=== PATIENT | male | born 1975 ===

== ENCOUNTER 2019-01-10 03:01 | Inpatient (IN) | payer OTHER ==
--- NOTE | 2019-01-10 03:07 | C.PDOC ---
History Of Present Illness The patient presents to the ED as a psychiatric transfer. Patient was medically evaluated and cleared at [facility], and accepted as a transfer by Dr. Alex for major depression prior to arrival. Patient offers no new complaints at this time. Time Seen by Provider: 01/10/19 03:06 History Per: Patient History/Exam Limitations: no limitations Onset/Duration Of Symptoms: Hrs Current Symptoms Are (Timing): Still Present Additional History Per: Patient Past Medical History Reviewed: Historical Data, Nursing Documentation, Vital Signs - Medical History PMH: No Chronic Diseases Surgical History: No Surg Hx Family History: States: Unknown Family Hx Review Of Systems Constitutional: Negative for: Fever, Chills Cardiovascular: Negative for: Chest Pain Respiratory: Negative for: Shortness of Breath Gastrointestinal: Negative for: Vomiting Skin: Negative for: Rash, Lesions, Jaundice, Bruising Psych: Positive for: Other (psychiatric transfer ) Physical Exam - Physical Exam Appears: Non-toxic, No Acute Distress Skin: Warm, Dry Neck: Supple Extremity: Normal ROM Neurological/Psych: Oriented x3 ED Course And Treatment O2 Sat by Pulse Oximetry: 97 (on RA ) Pulse Ox Interpretation: Normal Disposition Discussed With DrChristin: Addy Alex Comment: accepted the pt on his serviceand took over the care at 3:09AM Counseled Patient/Family Regarding: Studies Performed, Diagnosis - Disposition Disposition: HOSPITALIZED Disposition Time: 03:07 Condition: FAIR - Clinical Impression Clinical Impression: Major depression - Scribe Statement The provider has reviewed the documentation as recorded by the Scribe (Caroline Bishop) Provider Attestation: All medical record entries made by the Scribe were at my direction and personally dictated by me. I have reviewed the chart and agree that the record accurately reflects my personal performance of the history, physical exam, medical decision making, and the department course for this patient. I have also personally directed, reviewed, and agree with the discharge instructions and disposition. Decision To Admit - Pt Status Changed To: Hospital Disposition Of: Inpatient - Admit Certification Admit to Inpatient:: After my assessment, the patient will require hospitalization for at least two midnights. This is because of the severity of symptoms shown, intensity of services needed, and/or the medical risk in this patient being treated as an outpatient. - InPatient: Physician Admission Certification: I certify that this patient requires 2 or more midnights of care for the following reason:: After my assessment, the patient will require hospitalization for at least two midnights. This is because of the severity of symptoms shown, intensity of services needed, and/or the medical risk in this patient being treated as an outpatient. - . Bed Request Type: Psychiatry Admitting Physician: Addy Alex Patient Diagnosis: Major depression
[2019-01-10 03:20] VITALS: O2SAT 97
--- NOTE | 2019-01-10 05:01 | PCM.BM ---
Treatment Plan Problems - Problems identified on initial assessmt Suicidal Ideation Date Initiated: 01/10/19 Time Initiated: 04:45 Assessment reference: NA Status: Monitor Defensive Coping Date Initiated: 01/10/19 Time Initiated: 04:45 Assessment reference: NA Status: Active Comment: Heroin use as a coping mechanism Altered Family Process Date Initiated: 01/10/19 Time Initiated: 04:45 Assessment reference: NA Status: Active Comment: Father's recent passing. Spousal issues. Treatment assets and liabiliti Patient Assests: cooperative, ADL independent, negotiates basic needs Patient Liabilities: financial problems (Job loss), relationship conflicts (Spousal issues), substance abuse (Heroin use as a coping mechanism) - Milieu Protocol Maintain good personal hygiene: daily Encourage regular showers, daily Remind patient to perform daily oral care, every shift Assist patient to perform ADL's Conduct patient checks and document Observation sheet: Q15 minutes Maintain personal safety: every shift Educate patient to report safety concerns to staff, every shift Monitor environment for contraband/sharps Medication safety: Monitor for expected outcome, potential side effects: every shift, Assess barriers to learning: every shift, Assess readiness for medication education: every shift
--- NOTE | 2019-01-10 10:11 | PCM.PSYCH ---
Initial Psychiatric Evaluation - Initial Psychiatric Evaluation Type of Admission: Voluntary Legal Status: Capacity Chief Complaint (in patient's own words): I was feeling very irritable and I was hearing voices.' History of Present Illness and Precipitating Events: Patient is a 43 YO M with past psych history of depression and substance use, transferred from [facility] for suicidal ideations. He was hospitalized at [facility] in the past, but did not follow up with a psychiatrist outpatient. He reports having past suicide attempts, via overdose and cutting wrist. Patient stated yesterday he had a lot of things on his mind due to things not going well at home. He currently lives with his girlfriend. He reports heroin use, 5 bags per day IV, he last used yesterday. Denies alcohol and other recreational drug use. He is currently feeling irritable, agitated, depressed and hopeless. He stated not being able to sleep well at night. Patient reports positive for auditory hallucinations, stating voices tell him to do things. He denies visual hallucinations. He reported having some withdrawal symptoms of nausea, vomiting, and stomach pain. Past medical history None reported Current Medications: Active Medications Generic Name Dose Route Start Last Admin Trade Name Freq PRN Reason Stop Dose Admin Pneumococcal Polyvalent Vaccine 0.5 ml 01/13/19 10:00 Pneumovax 23 Vaccine IM 01/13/19 10:01 .ONCE ONE Past Psychiatric History - Past Psychiatric History Previous Treatment History: Inpatient Pertinent Medical Hx (Current Medical&Sleep Prob, Allergies): Allergies Allergy/AdvReac Type Severity Reaction Status Date / Time aspirin Allergy SWELLING Verified 01/10/19 03:18 ibuprofen [From Motrin] Allergy ANAPHYLAXIS Verified 01/10/19 05:55 Penicillins Allergy SWELLING Verified 01/10/19 03:18 Buprenorphine HCl/Naloxone HCl [Suboxone 8 mg-2 mg Sl Film] 8 mg PO DAILY 01/10/19 Famotidine [Pepcid] 20 mg PO DAILY 01/10/19 Ondansetron HCl [Zofran] 4 mg PO DAILY PRN 01/10/19 Review of Systems - Review of Systems All systems: reviewed and no additional remarkable complaints except - Psychiatric Psychiatric: Anxiety, Irritability, Suicidal Ideation Mental Status Examination - Personal Presentation Personal Presentation: Looks stated age - Affect Affect: Constricted, Depressed - Motor Activity Motor Activity: Calm - Reliability in Providing Information Reliability in Providing Information: Good - Speech Speech: Organized - Mood Mood: Depressed, Anxious - Formal Thought Process Formal Thought Process: Hallucinations, Delusions, Paranoia - Hallucinations/Delusions Hallucinations: Auditory Delusions: Persecution - Obsessions/Compulsions Obsessions: No Compulsions: No - Cognitive Functions Orientation: Person, Place, Situation, Time Sensorium: Alert Attention/Concentration: Attentive Abstract Thinking: [place] Estimate of Intelligence: Below average Judgement: Imparied, as evidence by: Poor judgement - Risk Risk: Suicidal, Withdrawal, Diminished functioning - Limitations Limitations: Living alone DSM 5 DX - DSM 5 DSM 5 Diagnosis: Bipolar disorder mixed severe with psychotic features Opioid use disorder severe Opioid withdrawal - Recommended/Plan of Treatment Treatment Recommendations and Plan of Treatment: Bipolar disorder mixed severe with psychotic features Opioid use disorder severe Opioid withdrawal -CBT -Psychoeducation -Supportive therapy and group therapy -Neurontin for augmentation -Methadone taper -Withdrawal medication including Zofran/clonidine/Motrin -Trazodone for insomnia -Hydroxyzine for anxiety -Depakote for mood -Seroquel for psychosis
[2019-01-10] MEDS ORDERED: guaiFENesin DM 200 mg-20 mg/10 ml UD PO PRN (10:12)
[2019-01-10] MEDS ORDERED: Aluminum Hydroxide/Magnesium Hydroxide Susp (30 mL) PO PRN (10:12)
[2019-01-10] MEDS ORDERED: Benzocaine/Menthol (Cepacol) Lozenge PO PRN (10:12)
[2019-01-10] MEDS: Divalproex 250 mg DR Tab PO SCH ×2 (10:38→17:05)
[2019-01-11] MEDS: Divalproex 250 mg DR Tab PO SCH ×2 (09:51→18:41)
--- NOTE | 2019-01-11 11:18 | PCM.PYCHPN ---
Psychiatric Progress Note - Psychiatric Progress Note Patient seen today, length of contact: 15 min Patient Chief Complaint: I was feeling very irritable and I was hearing voices.' Problems Identified/Issues Discussed: Patient seen and evaluated, chart reviewed and discussed with the nurse. Patient reports irritability, agitation and anxiety. Patient reports depressed mood and at times feels of hopelessness and helplessness. He still reports withdrawal symptoms including nausea, joint pains, cramps, and headaches. He still reports hallucinations and paranoia. He is taking medication and denies any side effects. Supportive therapy and psychoeducation were given Medication Change: Yes Medical Record Reviewed: Yes Mental Status Examination - Cognitive Function Orientation: Person, Place, Situation, Time Memory: Intact Attention: WNL Concentration: Poor Association: WNL Fund of Knowledge: Poor - Mood Mood: Depressed, Anxious - Affect Affect: Constricted, Depressed - Speech Speech: Soft - Formal Thought Process Formal Thought Process: Hallucinations, Delusions, Paranoia - Suicidal Ideation Suicidal Ideation: No - Homicidal Ideation Homicidal Ideation: No Goal/Treatment Plan - Goal/Treatment Plan Need for Continued Stay: Remain at risks for inpatient hospitalization Progress Toward Problem(s) and Goals/Treatment Plan: Bipolar disorder mixed severe with psychotic features Opioid use disorder severe Opioid withdrawal -CBT -Psychoeducation -Supportive therapy and group therapy -Neurontin for augmentation -Methadone taper -Withdrawal medication including Zofran/clonidine/Motrin -Trazodone for insomnia -Hydroxyzine for anxiety -Depakote for mood -Seroquel for psychosis - Smoking Cessation Smoking Cessation Initiated: No
[2019-01-12] MEDS: Divalproex 250 mg DR Tab PO SCH ×2 (10:48→17:35)
[2019-01-13] MEDS: Divalproex 250 mg DR Tab PO SCH ×2 (09:10→18:06)
[2019-01-13] MEDS ORDERED: Pneumococcal 23-Valent Vaccine IM ONE (10:00)
[2019-01-14 06:50] VITALS: RESP 20
[2019-01-14] MEDS: Divalproex 250 mg DR Tab PO SCH ×2 (09:31→17:19)
[2019-01-15 07:00] VITALS: BP 124/74; PULSE 70; TEMP 98.3
--- NOTE | 2019-01-15 09:00 | PCM.PYCHPN ---
Psychiatric Progress Note - Psychiatric Progress Note Patient seen today, length of contact: 15 min Patient Chief Complaint: I was feeling very irritable and I was hearing voices.' Problems Identified/Issues Discussed: Patient seen and evaluated, chart reviewed and discussed with the nurse. Patient reports irritability, agitation and anxiety. Patient reports depressed mood and at times feels of hopelessness and helplessness. He still reports withdrawal symptoms including nausea, joint pains, cramps, and headaches. He still reports hallucinations and paranoia. He is taking medication and denies any side effects. Supportive therapy and psychoeducation were given Medication Change: Yes Medical Record Reviewed: Yes Mental Status Examination - Cognitive Function Orientation: Person, Place, Situation, Time Memory: Intact Attention: WNL Concentration: WNL Association: WNL Fund of Knowledge: WNL - Mood Mood: Neutral - Affect Affect: Constricted - Speech Speech: Soft - Formal Thought Process Formal Thought Process: No Impairment - Suicidal Ideation Suicidal Ideation: No - Homicidal Ideation Homicidal Ideation: No Goal/Treatment Plan - Goal/Treatment Plan Need for Continued Stay: Remain at risks for inpatient hospitalization Progress Toward Problem(s) and Goals/Treatment Plan: Bipolar disorder mixed severe with psychotic features Opioid use disorder severe Opioid withdrawal -CBT -Psychoeducation -Supportive therapy and group therapy -Neurontin for augmentation -Methadone taper -Withdrawal medication including Zofran/clonidine/Motrin -Trazodone for insomnia -Hydroxyzine for anxiety -Depakote for mood -Seroquel for psychosis
--- NOTE | 2019-01-15 09:00 | PCM.PYCHDC ---
Mental Status Examination - Mental Status Examination Orientation: Person, Place, Situation, Time Memory: Intact Mood: Neutral Affect: Constricted Speech: Soft Attention: WNL Concentration: WNL Association: WNL Fund of Knowledge: WNL Formal Thought Process: No Impairment Suicidal Ideation: No Current Homicidal Ideation?: No Discharge Summary - Discharge Note Consultations:: List each consultation separately and include: 1. Reason for request. 2. Findings. 3. Follow-up Summary of Hospital Course include:: 1. Description of specific treatment plan utilized for patients during their course of treatmen. 2. Summarize the time- course for resolution of acute symptoms and/or regressed behaviors. 3. Describe issues identified and worked on during hospitalization. 4. Describe medication utilized. 5. Describe medical problems identified and treated. 6. Reassessment of suicide risk Summary of Hospital Course: Patient is a 43 YO M with past psych history of depression and substance use, transferred from [facility] for suicidal ideations. He was hospitalized at [facility] in the past, but did not follow up with a psychiatrist outpatient. He reports having past suicide attempts, via overdose and cutting wrist. Patient stated yesterday he had a lot of things on his mind due to things not going well at home. He currently lives with his girlfriend. He reports heroin use, 5 bags per day IV, he last used yesterday. Denies alcohol and other recreational drug use. He is currently feeling irritable, agitated, depressed and hopeless. He stated not being able to sleep well at night. Patient reports positive for auditory hallucinations, stating voices tell him to do things. He denies visual hallucinations. He reported having some withdrawal symptoms of nausea, vomiting, and stomach pain. Past medical history None reported - Final Diagnosis (DSM 5) Condition upon Discharge: FAIR Disposition: HOME/ ROUTINE Follow-up Treatment Plan: Bipolar disorder mixed severe with psychotic features Opioid use disorder severe Opioid withdrawal -CBT -Psychoeducation -Supportive therapy and group therapy -Neurontin for augmentation -Methadone taper -Withdrawal medication including Zofran/clonidine/Motrin -Trazodone for insomnia -Hydroxyzine for anxiety -Depakote for mood -Seroquel for psychosis Prescriptions/Medication Reconciliation: Divalproex [Depakote DR] 250 mg PO BID #60 tcp Gabapentin [Neurontin] 300 mg PO BID #60 cap QUEtiapine [Seroquel] 100 mg PO HS #30 tab
[2019-01-15] MEDS: Divalproex 250 mg DR Tab PO SCH (09:01)
== END 2019-01-15 09:51 | disposition home or self-care (01) | DRG 430 ==
LOC: C.ER 03:01 → C.5E 03:52
PROVIDERS: ADMIT Psychiatry & Neurology Psychiatry; ATTEND Psychiatry & Neurology Psychiatry
PROC: HZ2ZZZZ Detoxification Services for Substance Abuse Treatment (ICD-10-PCS; principal; 2019-01-10)
PROC: GZHZZZZ Group Psychotherapy (ICD-10-PCS; 2019-01-10)
PROC: HZ52ZZZ Individual Psychotherapy for Substance Abuse Treatment, Cognitive-Behavioral (ICD-10-PCS; 2019-01-10)
PROC: HZ59ZZZ Individual Psychotherapy for Substance Abuse Treatment, Supportive (ICD-10-PCS; 2019-01-10)
PROC: HZ56ZZZ Individual Psychotherapy for Substance Abuse Treatment, Psychoeducation (ICD-10-PCS; 2019-01-10)
PROC: HZ42ZZZ Group Counseling for Substance Abuse Treatment, Cognitive-Behavioral (ICD-10-PCS; 2019-01-10)
PROC: HZ46ZZZ Group Counseling for Substance Abuse Treatment, Psychoeducation (ICD-10-PCS; 2019-01-10)
PROC: GZ58ZZZ Individual Psychotherapy, Cognitive-Behavioral (ICD-10-PCS; 2019-01-10)
PROC: GZ56ZZZ Individual Psychotherapy, Supportive (ICD-10-PCS; 2019-01-10)
DX: F31.64 Bipolar disorder, current episode mixed, severe, with psychotic features (principal); F11.23 Opioid dependence with withdrawal; R45.851 Suicidal ideations; F41.9 Anxiety disorder, unspecified; G47.00 Insomnia, unspecified; Z91.5 Personal history of self-harm